=== PATIENT | female | born 1965 | race African-American/Black ===

== ENCOUNTER 2016-08-17 08:19 | Emergency (ER) | payer MEDICARE ==
--- NOTE | 2016-08-17 09:17 | ER Document Report ---
HPI - HPI Pain Level: 4 Notes: Patient is a 51-year-old female presents the ED complaining of left shoulder pain 1 week. Patient is not aware of any injury to the left shoulder. Patient states that the pain does not radiate. Patient states she has been sleeping on her left shoulder since her surgery in May (hysterectomy). She denies any neck pain. She has been performing conservative measures for her symptoms with heat and NSAIDs without any relief. She denies any med allergies. Patient does have a history of rheumatoid arthritis the patient states that primarily affects her hands. Patient states she still able to use her arm but does have limited range of motion to her shoulder because of the pain. Denies any headaches, fever, URI, sore throat, chest pain, palpitation constantly, shortness of breath, dyspnea on exertion, wheezing, cough, abdominal pain, nausea/vomiting, numbness/tingling, muscle paralysis, rash. - ROS Notes: REVIEW OF SYSTEMS: CONSTITUTIONAL : Denies fever, chills, or sweats. Denies recent illness. EENT: Denies eye, ear, throat, or mouth pain or symptoms. Denies nasal or sinus congestion or discharge. Denies throat, tongue, or mouth swelling or difficulty swallowing. CARDIOVASCULAR: Denies chest pain. Denies palpitations or racing or irregular heart beat. Denies ankle edema. RESPIRATORY: Denies cough, cold, or chest congestion. Denies shortness of breath, difficulty breathing, or wheezing. GASTROINTESTINAL: Denies abdominal pain or distention. Denies nausea, vomiting , or diarrhea. Denies blood in vomitus, stools, or per rectum. Denies black, tarry stools. Denies constipation. GENITOURINARY: Denies difficulty urinating, painful urination, burning, frequency, blood in urine, or discharge. MUSCULOSKELETAL: see hpi SKIN: Denies rash, lesions or sores. NEUROLOGICAL: see hpi ALL OTHER SYSTEMS REVIEWED AND NEGATIVE. Dictation was performed using [employer] voice recognition software - CARDIOVASCULAR Cardiovascular: DENIES: Chest pain - REPRODUCTIVE Reproductive: DENIES: : - DERM Skin Color: Normal Past Medical History - Social History Smoking Status: Unknown if Ever Smoked Family History: None, Reviewed & Not Pertinent Patient has suicidal ideation: No Patient has homicidal ideation: No - Past Medical History Cardiac Medical History: Reports: Hx Hypercholesterolemia, Hx Hypertension - not taking medication currently Neurological Medical History: Reports: Hx Migraine Renal/ Medical History: Denies: Hx Peritoneal Dialysis Musculoskeltal Medical History: Reports Hx Arthritis - RA Past Surgical History: Reports: Hx Section, Hx Hysterectomy, Hx Orthopedic Surgery - RIGHT HAND LEFT FOOT - Immunizations Hx Diphtheria, Pertussis, Tetanus Vaccination: Yes Vertical Provider Document - INFECTION CONTROL TRAVEL OUTSIDE OF THE [place] IN LAST 30 DAYS: No - HEENT Notes: PHYSICAL EXAMINATION: GENERAL: Well-appearing, well-nourished and in no acute distress. HEAD: Atraumatic, normocephalic. NECK: Normal range of motion, supple without lymphadenopathy. No rigidity/ meningismus. LUNGS: Breath sounds clear to auscultation bilaterally and equal. No wheezes rales or rhonchi. HEART: Regular rate and rhythm without murmurs, rubs, gallops. Musculoskeletal: Lt shoulder: LROM to active. FROM to passive with discomfort. Strength 4+/5. ?+ Neer's. Neg speed's. ?+ mild emptry can. Pt unable to reach up behind her back. + tenderness to palpation of the deltoid. Extremities: No cyanosis, clubbing, or edema b/l. Peripheral pulses 2+. Capillary refill less than 3 seconds. NEUROLOGICAL: Cranial nerves grossly intact. Normal speech, normal gait. Normal sensory, motor exams PSYCH: Normal mood, normal affect. SKIN: Warm, Dry, normal turgor, no rashes or lesions noted. - RESPIRATORY O2 Sat by Pulse Oximetry: 99 Course - Re-evaluation Re-evalutation: 08/17/16 09:16 Patient is afebrile, well-hydrated, 59-year-old female presents the ED with left shoulder pain suspect possible rotator cuff involvement versus bursitis/ impingement. Vitals are stable. PE otherwise unremarkable. Shoulder x-ray was negative for any acute fracture dislocation. I will send her home with Voltaren gel along with a steroid tapering dose. Continue conservative measures daily. Recheck with your PCM in 2-3 days. Consider consult with orthopedics for ongoing/worsening symptoms and further evaluation. Return to ED with any worsening/concerning symptoms otherwise as reviewed. Patient is in agreement. - Vital Signs Vital signs: Temp Pulse Resp BP Pulse Ox 98.3 F 79 12 209/98 H 99 08/17/16 08:22 08/17/16 08:22 08/17/16 08:22 08/17/16 08:22 08/17/16 08:22 Discharge - Discharge Clinical Impression: Left shoulder pain Qualifiers: Chronicity: acute Qualified Code(s): M25.512 - Pain in left shoulder Condition: Stable Disposition: HOME, SELF-CARE Additional Instructions: Rest, Ice, Compression, Elevation use/take meds as directed Tylenol/ibuprofen as needed Light stretches daily Strength exercises as able Moist heat and massage may help F/u with your PCP in 2-3 days for a recheck Consider consult(s) with Orthopedics for ongoing/worsening symptoms Return to the ED with any worsening pain, swelling, numbness/tingling, muscle weakness, development of fever, or any other worsening/concerning symptoms otherwise. Prescriptions: Diclofenac Sodium [Voltaren] 4 gm TP QID PRN #100 gel..gm. PRN Reason: Prednisone [Deltasone 10 mg Tablet] 10 mg PO ASDIR PRN #21 tablet PRN Reason: Forms: Elevated Blood Pressure Referrals: HEIDI CRUZ MD [Primary Care Provider] - Follow up as needed
[2016-08-17] MEDS ORDERED: LIDOCAINE 5% (700 MG) TRANSDERMAL ADH..PATCH TP ONE (10:36)
[2016-08-17 11:02] VITALS: BP 163/103
--- NOTE | 2016-08-17 11:05 | RADIOLOGY REPORT (SQ) ---
EXAM DESCRIPTION: SHOULDER LEFT 2 OR MORE VIEWS COMPLETED DATE/TIME: 08/17/2016 10:17 am REASON FOR STUDY: shoulder pain COMPARISON: None. NUMBER OF VIEWS: Three views. TECHNIQUE: Internal rotation, external rotation, and Y view images acquired of the left shoulder. LIMITATIONS: Artifact from safety pins and clothing FINDINGS: MINERALIZATION: Normal. BONES: No acute fracture or dislocation. No worrisome bone lesions. JOINTS: No glenohumeral dislocation. No acromioclavicular joint widening. VISUALIZED LUNGS AND RIBS: No pneumothorax. No rib fracture. SOFT TISSUES: No radiopaque foreign body. OTHER: No other significant finding. IMPRESSION: NEGATIVE STUDY OF THE LEFT SHOULDER. NO RADIOGRAPHIC EVIDENCE OF ACUTE INJURY. TECHNICAL DOCUMENTATION: JOB ID: [id number] [email or web address]- All Rights Reserved
== END 2016-08-17 11:28 | disposition home or self-care (01) ==
LOC: ER 08:19
DX: M25.512 Pain in left shoulder (principal); E78.00 Pure hypercholesterolemia, unspecified; Z90.710 Acquired absence of both cervix and uterus
CPT/HCPCS: 99283